=== PATIENT | male | born 1965 | race African-American/Black ===

== ENCOUNTER 2024-03-05 16:47 | Emergency (ER) | payer OTHER, MEDICAID ==
[~2024-03-05] VITALS: Ht 180.3 cm; Wt 81.6 kg
[2024-03-05 17:47] VITALS: BP 144/100; TEMP 98.4
[2024-03-05] MEDS ORDERED: CYCL5TAB PO (18:05)
[2024-03-05] MEDS ORDERED: CYCLOBENZAPRINE 10 MG TABLET ONE (18:12)
[2024-03-05] MEDS ORDERED: IBUPROFEN 600 MG TABLET ONE (18:13)
[2024-03-05 18:14] VITALS: O2SAT 98
[2024-03-05] MEDS: IBUPROFEN 600 MG TABLET PO ONE (18:14)
[2024-03-05] MEDS: CYCLOBENZAPRINE 10 MG TABLET PO ONE (18:14)
== END 2024-03-05 18:15 | disposition home or self-care (01) ==
LOC: ER 17:33
DX: M54.50 Low back pain, unspecified (principal); I10 Essential (primary) hypertension